=== PATIENT | male | born 1990 | race Caucasian/White ===

== ENCOUNTER 2017-10-23 08:50 | Emergency (ER) | payer OTHER ==
[~2017-10-23] VITALS: Ht 172.7 cm; Wt 88.0 kg
[2017-10-23 09:04] VITALS: BP 124/79; Ht 172.7 cm; Wt 88.0 kg
== END 2017-10-23 09:29 | disposition home or self-care (01) ==
LOC: ED 08:50
DX: J01.90 Acute sinusitis, unspecified (principal)